=== PATIENT | female | born 1945 | race Caucasian/White ===

== ENCOUNTER 2025-01-15 06:11 | Inpatient (IN) | payer MEDICARE, OTHER, SELFPAY ==
[2025-01-05 11:23] LABS: INR 1.02; PT 13.7 Sec (11.4-14.6)
[2025-01-05 11:24] LABS: APTT 27.8 Sec (23.4-35.0)
[2025-01-05 11:39] LABS: Hematocrit 34.7 % (37.0-47.0); Hemoglobin 11.6 g/dL (12.0-16.0); Mean Corp Hgb Conc. 33.4 g/dL (33.0-37.0); Mean Corpuscular Hgb 30.9 pg (27.0-31.0); Mean Corpuscular Volume 92.3 fL (81.0-99.0); Mean Platelet Volume 9.3 fL (7.4-10.4); Platelet Count 220 10^3/uL (130-400); Red Blood Cell Count 3.76 10^6/uL (4.20-5.40); Red Cell Dist. Width 13.6 % (11.5-14.5); White Blood Cell Count 5.5 10^3/uL (4.8-10.8)
[2025-01-05 11:43] LABS: ALT (SGPT) 19 U/L (0-35); AST (SGOT) 28 U/L (14-36); Albumin 4.1 g/dl (3.5-5.0); Alkaline Phosphatase 72 U/L (38-126); Blood Urea Nitrogen 13 mg/dl (7-17); Calcium 9.2 mg/dl (8.4-10.2); Carbon Dioxide 25 mmol/L (22-30); Chloride 103 mmol/L (98-107); Glucose 84 mg/dl (70-99); Potassium 4.2 mmol/L (3.5-5.1); Sodium 137 mmol/L (135-145); Total Bilirubin 0.6 mg/dl (0.2-1.3); Total Protein 7.2 g/dl (6.3-8.2); eGFR > 60.00
[2025-01-05 12:25] LABS: Glycohemoglobin (HgbA1c) 5.6 % (4.0-5.6)
[2025-01-05 14:08] VITALS: BMI 25.7
[2025-01-15] VITALS (13 sets, daily range): BP systolic 93–132; BP diastolic 53–82; BMI 25.7
[2025-01-15] MEDS: TYLENOL 1000 MG PO (07:01)
[2025-01-15] MEDS: HEPARIN 5000 UNITS SC (07:01)
[2025-01-15] MEDS: NORMOSOL-R/PLASMALYTE-A 1000 IV ×2 (07:01→13:39)
--- NOTE | 2025-01-15 11:27 | W.IMMPOSTOP ---
Surgical Immed Post Op Note
-
Primary Surgeon: Gino Casey MD
Septic Technician: ANATOLY Garcia
Pre-op Diagnosis: Rectal prolapse
Post-op Diagnosis: Same
Procedure Performed: Robotic ventral mesh rectopexy
Anesthesia Type: GET
Specimen / Cultures: None
Estimated Blood Loss: 20cc
Complications: None
Operative Findings: Full-thickness rectal prolapse
Upsylon mesh repair
Normal flexible sigmoidoscopy at the completion
Patient's and daughter updated in the waiting room
[2025-01-15 11:53] LABS: Glucose - Point of Care 150 mg/dl (70-99)
[2025-01-15] MEDS: TYLENOL 650 MG PO ×2 (13:38→20:22)
[2025-01-15] MEDS: TORADOL 15 MG IV ×2 (13:38→20:21)
[2025-01-15] MEDS: FLAGYL 500 MG 100 IV (16:39)
[2025-01-15] MEDS: TYLENOL PO (17:16)
--- NOTE | 2025-01-15 17:54 | PTCARENOTE ---
Pt arrived in bed from PACU at aprox 1300 today. Pt AAOx3. Pain to surgical sites tolerable. Vitals stable. IVF infusing. Pt with 6 laps sites to abd area SWETHA and glued. Ice pack applied for comfort. Pacheco draining clear yellow. Will order a clear
liquid lunch. Admission and assessment completed. Instructed pt to ring for assistance
[2025-01-16] MEDS: TORADOL 15 MG IV ×2 (00:27→06:00)
[2025-01-16] MEDS: TYLENOL 650 MG PO ×2 (00:28→08:43)
[2025-01-16] MEDS: FLAGYL 500 MG 100 IV (00:28)
[2025-01-16] MEDS: NORMOSOL-R/PLASMALYTE-A 1000 IV (00:28)
[2025-01-16 03:11] VITALS: BP 123/71
[2025-01-16] MEDS: TYLENOL PO (05:05)
[2025-01-16 06:11] LABS: % Immature Granulocytes 0.2 % (0-0.5); % Lymphocytes 12.3 % (20.5-51.1); % Monocytes 8.8 % (1.7-9.3); % Neutrophils 78.7 % (42.2-75.2); Absolute Lymphocytes 0.8 10^3/uL (1.2-3.4); Absolute Monocytes 0.5 10^3/uL (0.1-0.6); Absolute Neutrophils 4.8 10^3/uL (1.4-6.5); Hematocrit 29.2 % (37.0-47.0); Mean Corp Hgb Conc. 34.2 g/dL (33.0-37.0); Mean Corpuscular Hgb 30.9 pg (27.0-31.0); Mean Corpuscular Volume 90.1 fL (81.0-99.0); Mean Platelet Volume 9.3 fL (7.4-10.4); Nucleated Red Blood Cells % 0 %; Platelet Count 178 10^3/uL (130-400); Red Blood Cell Count 3.24 10^6/uL (4.20-5.40); Red Cell Dist. Width 13.6 % (11.5-14.5); White Blood Cell Count 6.1 10^3/uL (4.8-10.8)
[2025-01-16 06:42] LABS: Blood Urea Nitrogen 7 mg/dl (7-17); Calcium 8.6 mg/dl (8.4-10.2); Carbon Dioxide 27 mmol/L (22-30); Chloride 107 mmol/L (98-107); Estimated Creatinine Clearance 65 ml/min; Glucose 104 mg/dl (70-99); Potassium 3.9 mmol/L (3.5-5.1); Sodium 139 mmol/L (135-145); eGFR > 60.00
[2025-01-16 07:09] VITALS: BMI 25.8
[2025-01-16 07:20] VITALS: BP 121/62
[2025-01-16] MEDS: NORVASC 5 MG PO (08:42)
[2025-01-16] MEDS: TOPROL XL 75 MG PO (08:42)
[2025-01-16] MEDS: CRESTOR 20 MG PO (08:43)
[2025-01-16] MEDS: LOW STRENGTH ASPIRIN 81 MG PO (08:43)
--- NOTE | 2025-01-16 09:22 | W.PN.CRS1 ---
Today's Communication / Plan
-
Dispo planning
Assessment/Plan
-
This is a 79-year-old female with a history of rectal prolapse now with POD #1 robotic ventral mesh rectopexy. Doing well, expected postoperative course.
Will DC home today.
Subjective Data
Procedure
Robotic ventral mesh rectopexy
Subjective Data
Date of Service: January 16, 2025
Interval Events:
No acute events overnight. Slept well. Pain Controlled. Denies Nausea/Vomiting, +bowel function. Tolerating diet.
Objective Data
-
Vital Signs
Temp Pulse Resp BP Pulse Ox
98.6 F 72 18 121/62 98
01/16/25 07:20 01/16/25 07:20 01/16/25 07:20 01/16/25 07:20 01/16/25 07:20
Intake & Output
01/15/25 01/16/25 01/17/25
06:59 06:59 06:59
Intake Total 1540 / 1540
Output Total 2300 / 2300 1280 / 1280
Balance -760 / -760 -1280 / -1280
Intake:
Oral fluids 440 / 440
IV fluids (Total) 900 / 900
Normosol 100 / 100
IV piggybacks 200 / 200
Output:
Urine, Pacheco 2300 / 2300 800 / 800
Urine, Voided 480 / 480
Lab Results
01/16/25 05:21
01/16/25 05:21
Physical Exam
-
General: No Acute Distress
Abdomen: Soft, Non Distended and Tender (Appropriate)
Incision: Clear, Dry, Intact
--- NOTE | 2025-01-16 09:34 | W.DS.TRANS ---
Addendum entered and electronically signed by KACY Ellis 01/16/25 11:01:
dictated #[id number]
Original Note:
DC Summary - Counterperson
-
Discharge Instructions:
Sleep Apnea Risk Low
Discharge Diagnosis/Procedures Robotic ventral mesh rectopexy
Diet Low Residue
Activity No strenuous activity
Additional Activity No lifting over 10lbs (gallon of milk)
Driving Restrictions No driving for 1 week
Bathing Restrictions OK to Shower
Wound Care Allow glue to naturally fall off. Do not pick at
incisions.
Instructions: Low-fiber diet
Stand-Alone Forms:
Changes to Home Medications: No
Discharge Medications:
DC Medications w/original date entered in [employer]
amlodipine 5 mg tablet 5 mg PO DAILY Blood Pressure 01/08/25
aspirin 81 mg tablet 81 mg PO DAILY Blood Clot Prevention/Tx 01/08/25
cholecalciferol (vitamin D3) 125 mcg (5,000 unit) tablet (Vitamin D3) 250 mcg PO DAILY Supplement 01/08/25
diphenhydramine HCl 25 mg capsule (Benadryl) 25 mg PO HS PRN congestion 01/08/25
ferrous sulfate 325 mg (65 mg iron) tablet (iron) 325 mg PO DAILY Supplement 01/08/25
lisinopril 30 mg tablet 30 mg PO DAILY Blood Pressure 01/08/25
metoprolol succinate 25 mg tablet,extended release 24 hr 75 mg PO DAILY Heart Disease/Condition 01/08/25
psyllium husk 3.4 gram/5.4 gram oral powder (Metamucil) 1 tsp PO BID PRN constipation 01/08/25
Held on 01/16/25. Instructions: Resume on 01/30/25.
rosuvastatin 20 mg tablet 20 mg PO DAILY High Cholesterol 01/08/25
vit C 250 mg-vit E 90 mg-zinc 40 mg-copper 1 [id number] capsule (PreserVision AREDS-2) 1 tab PO BID Eye Condition 01/08/25
oxycodone 5 mg tablet 5 mg PO Q4HPRN PRN breakthrough/severe pain #15 tabs 01/16/25
polyethylene glycol 3350 17 gram oral powder packet 17 grams PO DAILYPRN PRN constipation #1 packet 01/16/25
Home Medication Changes
Pending Results: No
[2025-01-16 11:15] VITALS: BP 129/62
--- NOTE | 2025-01-16 12:03 | CM ---
Initial assessment completed with patient who lives with her in a 1 story home plus basement with 3 steps to enter. [employer] patient was independent in ADL's and ambulation, drives. Has crutches in the home, no in-home services. Does have a
HC-POA. Support system is and daughter. PCP is Dr Yuridia Varma and Pharmacy is [facility] in [place]. Discharge POC: Home with no needs.
[2025-01-16] MEDS: TORADOL IV (12:16)
--- NOTE | 2025-01-16 13:23 | CM ---
Patient has been medically cleared for discharge to home with no additional skilled services. transporting home.
== END 2025-01-16 13:06 | disposition home or self-care (01) | DRG 331 ==
LOC: 2 SOUTH 06:11
PROVIDERS: ADMITTING PHYSICIAN Surgery; FAMILY PHYSICIAN Internal Medicine
PROC: 0DUP4JZ Supplement Rectum with Synthetic Substitute, Percutaneous Endoscopic Approach (ICD-10-PCS; 2025-01-15)
PROC: 0DSP4ZZ Reposition Rectum, Percutaneous Endoscopic Approach (ICD-10-PCS; 2025-01-15)
PROC: 8E0W4CZ Robotic Assisted Procedure of Trunk Region, Percutaneous Endoscopic Approach (ICD-10-PCS; 2025-01-15)
DX: K62.3 Rectal prolapse (principal); Z88.0 Allergy status to penicillin
CPT/HCPCS: 36415; 80048; 80053; 82962; 83036; 85025; 85027; 85610; 85730; 86850; 86900; 86901; 97161; C1763

== ENCOUNTER 2025-01-23 18:53 | Inpatient (IN) | payer MEDICARE, OTHER, SELFPAY ==
[2025-01-23] VITALS (7 sets, daily range): BP systolic 83–119; BP diastolic 51–77; BMI 25.3; BMI 24.8
[2025-01-23 14:53] LABS: Hematocrit 31.9 % (37.0-47.0); Hemoglobin 11.4 g/dL (12.0-16.0); Mean Corp Hgb Conc. 35.7 g/dL (33.0-37.0); Mean Corpuscular Volume 87.6 fL (81.0-99.0); Nucleated Red Blood Cells % 0 %; Platelet Count 264 10^3/uL (130-400); Red Cell Dist. Width 13.4 % (11.5-14.5)
--- NOTE | 2025-01-23 15:06 | ED.GENMED ---
History of Present Illness
General
Chief Complaint: Post Operative Problem(s)
Source: patient
Exam Limitations: none
Time Seen by Provider: 01/23/25 15:00
History of Present Illness
History of Present Illness:
See MDM
Past History
Past History
ED Past Medical History: HTN
ED Past Surgical History: Other (Rectal prolapse surgery)
Social History
Tobacco: Non-smoker
Alcohol: None
Phy Exam
Physical Exam
Physical Exam:
See MDM
Course
Orders/Labs/Results
Orders:
Orders
01/23/25 13:57
Electrocardiogram (*1) Urgent
Reason for Study: Abdominal Pain
EKG- Treatment ONCE
IV Insert/Care/Rem.- Treatment PRN
01/23/25 14:32
Complete Blood Count/With Diff Urgent
Comprehensive Metabolic Panel Urgent
Lactic Acid Urgent
Lipase Urgent
01/23/25 15:04
0.9% Sodium Chloride 1000 ml [Nss] 1,000 ml IV BOLUS
Morphine Sulfate 2 mg IV NOW STA
Ondansetron Injectable [Zofran] 4 mg IV NOW STA
01/23/25 15:25
CT Abd/pel (oral only)-DH Only Urgent
Comment:
Reason For Exam: general abd pain, recent rectal surgery
Iohexol [Omnipaque] See Protocol PO NOW STA
01/23/25 15:39
Urinalysis Reflex To Culture Urgent
Date Specimen was Collected: 01/23/25
Time Specimen was Collected: 13:57
01/23/25 17:48
Ondansetron Injectable [Zofran] 4 mg .ROUTE .STK-MED ONE
Ondansetron Injectable [Zofran] 4 mg IV NOW STA
01/23/25 17:53
NG Tube [GI tube insertion- Treatment] ONCE
Morphine Sulfate 4 mg IV NOW STA
01/23/25 17:56
Consult Surgery [SURGICAL CONSULT] Urgent
Consulting Provider: Mack Calix
Was physician already notified: Yes
01/23/25 18:08
CR Chest Portable - 1 View Urgent
Comment:
Reason For Exam: ngt placement
Reason Study Needs to be Portable: Unable to Transport
Abnormal Lab Results
01/23/25
14:32
RBC 3.64 L 10^6/uL
(4.20-5.40)
Hgb 11.4 L g/dL
(12.0-16.0)
Hct 31.9 L %
(37.0-47.0)
MCH 31.3 H pg
(27.0-31.0)
Absolute Lymphs (auto) 0.9 L 10^3/uL
(1.2-3.4)
Absolute Monos (auto) 0.8 H 10^3/uL
(0.1-0.6)
Lymphocytes % 12.0 L %
(20.5-51.1)
Monocytes % 11.6 H %
(1.7-9.3)
Sodium 126 L mmol/L
(135-145)
Chloride 79 L mmol/L
(98-107)
Carbon Dioxide 36 H mmol/L
(22-30)
BUN 61 H mg/dl
(7-17)
Creatinine 4.9 H* mg/dL
(0.6-1.0)
Glucose 137 H mg/dl
(70-99)
Calcium 8.2 L mg/dl
(8.4-10.2)
Lipase 383 H U/L
(23-300)
01/23/25 14:32
01/23/25 14:32
Vital Signs
Initial and Last Documented VS:
Initial Vital Signs
Temp Pulse Resp BP Pulse Ox
98.6 F 94 16 83/52 96
01/23/25 13:52 01/23/25 13:52 01/23/25 13:52 01/23/25 13:52 01/23/25 13:52
Last Documented Vital Signs
Temp Pulse Resp BP Pulse Ox
98.6 F 88 26 119/72 98
01/23/25 13:52 01/23/25 17:00 01/23/25 17:00 01/23/25 17:00 01/23/25 17:00
MDM/Problems Addressed
Differential Diagnosis Includes:
HPI and MDM Narrative:
79-year-old female presenting with generalized abdominal pain. This is associated with decreased p.o. intake. She had recent elective rectal prolapse surgery. Since then, she has had decreased p.o. intake and decreased urination. She is now
noticing abdominal distention and pain. She did take a dose of MiraLAX which did result in defecation.
On exam, she is mildly distended but abdomen is soft. She does not have peritonitic signs. Blood work shows creatinine of 4.9 but bedside bladder scan shows no evidence of bladder distention. Will start IV fluids and give pain medicine obtain CT.
Will let the colorectal team know
Physical exam
General: Mildly uncomfortable
HEENT: protecting airway. Dry mucous membranes
Neck: appears supple
CV: No evidence of cyanosis
Resp: No accessory muscle use. Lungs clear
Abd: Mildly distended. No rebound
Extremities: No deformities
Neuro: alert
Psych: Normal affect
Skin: Intact
Problems Addressed including Acute and Chronic Conditions affecting care:
1. Abdominal pain
Acuity: acute
Prognosis: stable
Details: given recent Rectal surgery, will obtain CT
2. Elevated creatinine
Acuity: acute
Prognosis: stable
Details: Likely in setting of prerenal KEHINDE. Will give IV fluids. Bedside bladder scan shows no evidence of bladder distention
Updates
CT consistent with small bowel obstruction secondary to incarcerated hernia to the right abdomen. Due to her abdominal distention, I cannot reduce the hernia. Case discussed with surgery. Will place NG tube and surgery will come to bedside to try
to reduce
Differential Diagnosis (but not limited to): Small bowel suction, ileus
Testing considered: Abdominal x-ray
Drug therapy (if applicable): OTC meds, please see d/c instruction regarding Rx drugs
Amount and/or Complexity of Data Reviewed
Clinical info obtained from: Patient
External data reviewed: N/A
Labs I independently reviewed (but not limited to): Elevated creatinine
Radiology: The CT scan was personally and independently reviewed. In addition, official CT report reviewed.
Pulse Ox: not hypoxic
EKG independently reviewed: Sinus rhythm, PACs, no STEMI
Peer Health Promoter: Sinus rhythm
Critical Care: N/A
Risk of Complication:
Social Determinants of health: Good social support
Discussed with other providers: surgeon, hospitalist
Escalation of Care includes Admit/Obs: Given the acute kidney injury, will ultimately admit for IV fluids. Given the small bowel obstruction secondary to incarcerated hernia, surgery will bring to the OR if they cannot reduce at bedside
Occasional wrong word or 'sound a like' substitutions may have occurred due to the inherent limitations of voice recognition software. Read the chart carefully and recognize, using context, where substitutions have occurred.
*Pulse Oximetry
SaO2: 97
Oxygen Mode of Delivery: Room air
Patient hypoxic: no
*Critical Care Note
Total Time (30-74mins, 75-104mins- exclusive of procedures): Not Applicable
ED Attending Note
-
Portions of this chart may have been created with voice recognition software.� Occasional wrong word or��sound alike� substitutions may have occurred due to the inherent limitations of voice recognition software.
Discharge Plan
Departure
Patient Disposition: Admit
Date of Disposition: 01/23/25
Time of Disposition: 18:01
Admit to: Med/Surg
Presentation/result/management discussed w/ accepting MD/DO: Hospitalist
Discharge Problem:
SBO (small bowel obstruction), Incarcerated hernia, KEHINDE (acute kidney injury)
Prescriptions:
No Action
amlodipine 5 mg Tablet
5 mg PO DAILY
ferrous sulfate [iron] 325 mg (65 mg iron) Tablet
325 mg PO DAILY
lisinopril 30 mg Tablet
30 mg PO DAILY
aspirin 81 mg Tablet
81 mg PO DAILY
metoprolol succinate 25 mg Tablet Extended Release 24 Hr
75 mg PO DAILY
rosuvastatin 20 mg Tablet
20 mg PO DAILY
cholecalciferol (vitamin D3) [Vitamin D3] 125 mcg (5,000 unit) Tablet
250 mcg PO DAILY
PreserVision AREDS-2 250-90-40-1 mg Capsule
1 tab PO BID
polyethylene glycol 3350 [polyethylene glycol 3350] 17 gram powder in packet
17 grams PO DAILYPRN PRN (Reason: constipation) Qty: 1 0RF
acetaminophen [Tylenol Extra Strength] 500 mg Tablet
1,000 mg PO Q6HPRN PRN (Reason: mild pain)
oxycodone 5 mg Tablet
5 mg PO Q6HPRN PRN (Reason: severe pains)
omeprazole 20 mg Tablet,Delayed Release (Dr/Ec)
20 mg PO DAILY
Referrals:
Yuridia Varma MD [Family Provider, Internal Medicine]
Interventions
Interventions:
*Risk Screen - Suicide Last Done: 01/23/25 13:52
*General Assessment Last Done: 01/23/25 14:13
*Neglect/Abuse Screening Last Done: 01/23/25 14:20
*ED- Fall Risk Assessment Last Done: 01/23/25 14:13
*ED COVID-19 Vaccine History Last Done: 01/23/25 14:13
Discharge Date and Time
Print Language: LEBANESE
[2025-01-23 15:12] LABS: ALT (SGPT) 16 U/L (0-35); AST (SGOT) 26 U/L (14-36); Albumin 4.0 g/dl (3.5-5.0); Alkaline Phosphatase 61 U/L (38-126); Blood Urea Nitrogen 61 mg/dl (7-17); Calcium 8.2 mg/dl (8.4-10.2); Carbon Dioxide 36 mmol/L (22-30); Chloride 79 mmol/L (98-107); Estimated Creatinine Clearance 8 ml/min; Glucose 137 mg/dl (70-99); Lipase 383 U/L (23-300); Potassium 3.7 mmol/L (3.5-5.1); Sodium 126 mmol/L (135-145); Total Protein 6.9 g/dl (6.3-8.2); eGFR 8.62
[2025-01-23] MEDS: NSS 1000 IV ×2 (15:14→20:14)
[2025-01-23] MEDS: ZOFRAN 4 MG IV ×2 (15:14→17:49)
[2025-01-23] MEDS: MORPHINE SULFATE 2 MG IV (15:15)
[2025-01-23] MEDS: OMNIPAQUE 50 ML PO (15:35)
--- NOTE | 2025-01-23 16:16 | CON.CRS ---
Documented by User: KACY Ellis 01/23/25 16:36
Consultation
-
Date/Time Consultation Performed: 01/23/25 1600
Reason for Consultation: n/v
Medical History
-
Chief Complaint: n/v
History of Present Illness:
Ms White is a 79 yo female with a h/o HTN and recent robotic ventral mesh rectopexy on Saturday01/15/[address] Csaey seen today in evaluation in the ED. She did well in the immediate post operative period and was discharged to home the following
day. On saturday night, she began having a lot of sneezing and noted a bulge to the right lower abdominal incisions with some discomfort to the right upper abdomen since that time. The following day, she noted some nausea with vomiting which has
intermittently persisted since that time with poor po intake. She was passing liquid stools and some flatus initially on going home which did slow down. Yesterday, she had a small BM with the help of miralax. She continues to pass flatus. She has
noted that she is urinating small amounts less frequently and that her urine has been quite dark. She denies fevers or chills. She was a little dizzy at home today and was brought to the ED by her family.
Past Medical History
Past Medical History: Cancer (skin) and Hypercholesterolemia
Past Surgical History: Gynecological (tubal ligation) and Other (robotic ventral mesh rectopexy 01/15/25)
Social History
Tobacco: Non-Smoker
Alcohol: None
Personal:
Living: With Family
Family History
Family History: Reviewed & Not Pertinent
Allergies / Home Medications
Allergy/AdvReac Type Severity Reaction Status Date / Time
Penicillins Allergy swollen Verified 01/15/25 06:41
joints
�Medication �Instructions �Recorded �Confirmed �Type
amlodipine 5 mg tablet 5 mg PO DAILY Blood Pressure 01/08/25 01/23/25 History
aspirin 81 mg tablet 81 mg PO DAILY Blood Clot 01/08/25 01/23/25 History
Prevention/Tx
cholecalciferol (vitamin D3) 125 250 mcg PO DAILY Supplement 01/08/25 01/23/25 History
mcg (5,000 unit) tablet (Vitamin
D3)
ferrous sulfate 325 mg (65 mg 325 mg PO DAILY Supplement 01/08/25 01/23/25 History
iron) tablet (iron)
lisinopril 30 mg tablet 30 mg PO DAILY Blood Pressure 01/08/25 01/23/25 History
metoprolol succinate 25 mg 75 mg PO DAILY Heart 01/08/25 01/23/25 History
tablet,extended release 24 hr Disease/Condition
rosuvastatin 20 mg tablet 20 mg PO DAILY High Cholesterol 01/08/25 01/23/25 History
vit C 250 mg-vit E 90 mg-zinc 40 1 tab PO BID Eye Condition 01/08/25 01/23/25 History
mg-copper 1 me-[id number]-ptohqu
capsule (PreserVision AREDS-2)
polyethylene glycol 3350 17 gram 17 grams PO DAILYPRN PRN 01/16/25 01/23/25 Rx
oral powder packet constipation #1 packet
acetaminophen 500 mg tablet 1,000 mg PO Q6HPRN PRN mild pain 01/23/25 01/23/25 History
(Tylenol Extra Strength)
omeprazole 20 mg tablet,delayed 20 mg PO DAILY 01/23/25 01/23/25 History
release
oxycodone 5 mg tablet 5 mg PO Q6HPRN PRN severe pains 01/23/25 01/23/25 History
Review of Systems
-
History Source: Patient and Family
All other systems: Negative unless noted
A 10 point review of systems was completed, and was negative except as per HPI.
Physical Exam
Vital Signs
Temp 98.6 F 01/23/25 13:52
Pulse 89 01/23/25 16:00
Resp Rate 19 01/23/25 16:00
Blood pressure 89/77 01/23/25 16:00
SaO2 97 01/23/25 15:45
01/22/25 01/23/25 01/24/25
06:59 06:59 06:59
Actual Weight 64.7 kg
Body Mass Index (BMI) 25.3
Lab Results / Allergies
01/23/25 14:32
01/23/25 14:32
WBC 7.2 10^3/uL (4.8-10.8) 01/23/25 14:32
Hgb 11.4 g/dL (12.0-16.0) L 01/23/25 14:32
Hct 31.9 % (37.0-47.0) L 01/23/25 14:32
Plt Count 264 10^3/uL (130-400) 01/23/25 14:32
Abs Immat Gran (auto) 0.0 10^3/uL (0-0.05) 01/23/25 14:32
Neutrophils % 74.9 % (42.2-75.2) 01/23/25 14:32
Allergy/AdvReac Type Severity Reaction Status Date / Time
Penicillins Allergy swollen Verified 01/15/25 06:41
joints
Physical Exam
General: Well Developed and Well Nourished
HEENT: Moist Mucous Membranes
Respiratory: Non Labored Respirations
GI: Soft, Tender (right abdomen), Distended (mild) and Other (Bulging across the right lower abdomen with some ecchymosis. Tenderness to the right upper abdomen)
Skin: Warm, Dry and Other (incisions healing well, no erythema. mild associated ecchymosis)
Neuro: Awake, Alert and AO x 3
Psych: Calm
Data Reviewed
-
Labs: Labs Reviewed by me, Discussed with Physician, Discussed with Patient and Discussed with Family
Old Records: Reviewed
Assessment / Plan
-
79 yo female seen today in the ED who is pod #8 robotic ventral mesh rectopexy with Dr Casey who was initially doing well after surgery. She developed sneezing on the evening of POD #2 with subsequent bulging to right lower abdomen followed by
nausea and vomiting with poor PO intake over the past 5-6 days but has been passing flatus and stools. Low UO over the past day or 2.
Labs notable for hyponatremia and KEHINDE with Cr of 4.9 (0.6). Hemoglobin stable from prior admission without leukocytosis. Afebrile. Hypotensive on arrival, BP responded to IVF bolus. Suspect prerenal KEHINDE from poor PO intake. CT abd/pelvis with PO
contrast pending to better evaluate abdominal bulging/pain and GI tract.
--Further surgical recs pending CT imaging
--Continue NPO pending CT findings
Would recommend admitting to hospitalist service for medical management of renal impairment

Documented by User: Mack Calix MD 01/23/25 21:04
Data Reviewed
-
CT Scan: Image Personally Visualized and interpreted and Discussed with Physician (radiology)
[2025-01-23] MEDS: MORPHINE SULFATE 4 MG IV (17:57)
--- NOTE | 2025-01-23 18:17 | HPS.HSE ---
Family Physician
-
Family Physician: Yuridia Varma MD
Chief Complaint
-
abdominal pain
History of Present Illness
79-year-old female past medical history of rectal prolapse status post ventral mesh rectopexy on 01/15, hypertension, skin cancer, hypercholesteremia, presenting to the emergency room for bulge in the right lower abdomen incision site. She recently
underwent robotic ventral mesh rectopexy on 01/[address] Casey. On Saturday night she began having a lot of sneezing and noticed a bulge with some discomfort in the right upper abdomen since that time. She had nausea next day with vomiting with poor
p.o. intake. She was passing liquid stools and some gas initially which did slow down. She had constipation afterwards and took MiraLAX with a small bowel movement. Continues to pass gas. She is urinating less frequently. Urine is dark. No
fevers or chills. Little bit of dizziness today.
Denies smoking or alcohol use.
Medical History
Past Medical History
Past Medical History: Reports Other (rectal prolapse status post ventral mesh rectopexy on 01/15, hypertension, skin cancer, hypercholesteremia)
Past Surgical History: Reports Other (Gynecological (tubal ligation) and Other (robotic ventral mesh rectopexy 01/15/25))
Social History
Tobacco: Non-smoker
Alcohol: None
Drug: None
Family History
Family History: Not pertinent
Allergies / Home Medications
Allergies reflects when Allergies were last updated in [facility].
Home Medications with original date entered in [facility]
Allergy/Medication List:
Allergies
Allergy/AdvReac Type Severity Reaction Status Date / Time
Penicillins Allergy swollen Verified 01/15/25 06:41
joints
Home Medications
amlodipine 5 mg tablet 5 mg PO DAILY Blood Pressure 01/08/25
aspirin 81 mg tablet 81 mg PO DAILY Blood Clot Prevention/Tx 01/08/25
cholecalciferol (vitamin D3) 125 mcg (5,000 unit) tablet (Vitamin D3) 250 mcg PO DAILY Supplement 01/08/25
ferrous sulfate 325 mg (65 mg iron) tablet (iron) 325 mg PO DAILY Supplement 01/08/25
lisinopril 30 mg tablet 30 mg PO DAILY Blood Pressure 01/08/25
metoprolol succinate 25 mg tablet,extended release 24 hr 75 mg PO DAILY Heart Disease/Condition 01/08/25
rosuvastatin 20 mg tablet 20 mg PO DAILY High Cholesterol 01/08/25
vit C 250 mg-vit E 90 mg-zinc 40 mg-copper 1 yt-hazjxg-dsloqf capsule (PreserVision AREDS-2) 1 tab PO BID Eye Condition 01/08/25
polyethylene glycol 3350 17 gram oral powder packet 17 grams PO DAILYPRN PRN constipation #1 packet 01/16/25
acetaminophen 500 mg tablet (Tylenol Extra Strength) 1,000 mg PO Q6HPRN PRN mild pain 01/23/25
omeprazole 20 mg tablet,delayed release 20 mg PO DAILY 01/23/25
oxycodone 5 mg tablet 5 mg PO Q6HPRN PRN severe pains 01/23/25
Review of Systems
-
History Source: Patient
A 12 point ROS was completed and negative except as noted: Yes
Constitutional: Reports No Symptoms
EENT: Reports No Symptoms
Respiratory: Reports No Symptoms
Cardiac: Reports No Symptoms
Abdomen/GI: Reports See HPI
: Reports No Symptoms
Musculoskeletal: Reports No Symptoms
Skin: Reports No Symptoms
Neurological: Reports No Symptoms
Endocrine: Reports No Symptoms
Hematologic/Lymphatic: Reports No Symptoms
Psych: Reports No Symptoms
Physical Exam
Vital Signs
Vital Signs
Temp Pulse Resp BP Pulse Ox
98.6 F 84 24 119/72 98
01/23/25 13:52 01/23/25 17:30 01/23/25 17:30 01/23/25 17:00 01/23/25 17:30
Physical Exam
General: Well Developed, Well Nourished and No Apparent Distress
HEENT: NormoCephalic, Moist mucous membranes and Atraumatic
Respiratory: Clear
Cardiac: S1/S2 and Regular Rhythm; No Murmur or Rub
GI: Soft, Normal Bowel Sounds, Tender (RLQ hernia ) and Distended; No Organomegaly
Rectal: Deferred by Provider
Musculoskeletal: No Clubbing, No Cyanosis and No Edema
Skin: No Rash
Neuro: Nonfocal/grossly intact
Laboratory Results
-
01/23/25 14:32
01/23/25 14:32
Laboratory Results
Lactic Acid 1.3 mmol/L (0.7-2.0) 01/23/25 14:32
Total Bilirubin 0.8 mg/dl (0.2-1.3) 01/23/25 14:32
AST 26 U/L (14-36) 01/23/25 14:32
ALT 16 U/L (0-35) 01/23/25 14:32
Alkaline Phosphatase 61 U/L (38-126) 01/23/25 14:32
Lipase 383 U/L (23-300) H 01/23/25 14:32
Data Reviewed
-
Lab Data: Labs Reviewed by me
Old Records: Reviewed
Impression/Plan
-
IMPRESSION:
PLAN:
# Incarcerated hernia with bowel obstruction
# Recent elective rectal prolapse s/p ventral mesh rectopexy on 01/15
- N.p.o. including all oral medication
-NG tube placed with significant output
- IV fluids
- Colorectal going to reduce and trying to avoid operative management given KEHINDE
- Dilaudid for pain
- Protonix daily
- Hold lisinopril, amlodipine, metoprolol due to hypotension
# Acute kidney injury likely prerenal from GI losses
- Creatinine 4.9
- Pacheco catheter
- Check I's and O's
- IV fluids
- Hold lisinopril
# Hyponatremia secondary to vomiting, decreased p.o. intake
- Sodium 126
- Monitor with IV fluids
Essential hypertension
- Hold lisinopril, amlodipine, metoprolol
Skin cancer
Hypercholesterolemia
- Hold statin
Chronic anemia
- Hemoglobin stable 11.4
DNR/DNI
DVT prophylaxis�heparin
N.p.o.
[2025-01-23 18:42] LABS: Urine Character Clear (Clear)
[2025-01-23 18:48] LABS: Urine Squamous Cell 0-2 /LPF (Few)
[2025-01-23] MEDS: HEPARIN 5000 UNITS SC (20:16)
[2025-01-24] VITALS (13 sets, daily range): BP systolic 101–123; BP diastolic 43–93
[2025-01-24 01:39] LABS: Blood Urea Nitrogen 65 mg/dl (7-17); Calcium 7.7 mg/dl (8.4-10.2); Carbon Dioxide 37 mmol/L (22-30); Chloride 83 mmol/L (98-107); Estimated Creatinine Clearance 10 ml/min; Glucose 94 mg/dl (70-99); Magnesium 1.8 mg/dl (1.6-2.3); Potassium 4.1 mmol/L (3.5-5.1); Sodium 128 mmol/L (135-145); eGFR 10.99
--- NOTE | 2025-01-24 02:03 | PTCARENOTE ---
Pt adm to unit from ED, surgery scheduled for AM @ this time. Pt remains NPO, NGT to low intermittent suction but only output continues to remain in tubing. Flushed and patent, pt denies any nausea or vomiting. Abdomen non distended, RLQ has small
area where pt reports hernia repair from previous week was located.
[2025-01-24 06:35] LABS: Hematocrit 30.1 % (37.0-47.0); Hemoglobin 10.5 g/dL (12.0-16.0); Mean Corp Hgb Conc. 34.9 g/dL (33.0-37.0); Mean Corpuscular Volume 89.1 fL (81.0-99.0); Nucleated Red Blood Cells % 0 %; Platelet Count 220 10^3/uL (130-400); Red Cell Dist. Width 13.5 % (11.5-14.5)
[2025-01-24 06:57] LABS: ALT (SGPT) 13 U/L (0-35); AST (SGOT) 25 U/L (14-36); Albumin 3.4 g/dl (3.5-5.0); Alkaline Phosphatase 55 U/L (38-126); Blood Urea Nitrogen 65 mg/dl (7-17); Calcium 7.9 mg/dl (8.4-10.2); Carbon Dioxide 37 mmol/L (22-30); Chloride 83 mmol/L (98-107); Estimated Creatinine Clearance 11 ml/min; Glucose 80 mg/dl (70-99); Potassium 3.6 mmol/L (3.5-5.1); Sodium 129 mmol/L (135-145); Total Protein 6.1 g/dl (6.3-8.2); eGFR 13.36
[2025-01-24] MEDS: PROTONIX IV 40 MG IV (08:58)
[2025-01-24] MEDS: NSS (PRESERVATIVE FREE) 10 ML IV (08:59)
[2025-01-24] MEDS: HEPARIN 5000 UNITS SC (09:04)
[2025-01-24] MEDS: NSS 1000 IV (09:05)
--- NOTE | 2025-01-24 10:13 | W.PN.HOSP.TC ---
Today's Communication/Plan
-
for surgical intervention now
continue IVF
monitor labs
Assessment / Plan
Assessment / Plan
# Incarcerated hernia with bowel obstruction
# Recent elective rectal prolapse s/p ventral mesh rectopexy on 01/15
- N.p.o. including all oral medication
-NG tube placed with significant output
- IV fluids
- Colorectal to take to surgery now
- Dilaudid for pain
- Protonix daily
- Hold lisinopril, amlodipine, metoprolol due to hypotension, though BP better now 83/52-->108/52
# Acute kidney injury likely prerenal from GI losses
Better
- Creatinine 4.9-->4.0-->3.4
- Pacheco catheter
- Check I's and O's
- IV fluids
- Hold lisinopril
# Hyponatremia secondary to vomiting, decreased p.o. intake
- Sodium 126-->128-->129
better
- Monitor with IV fluids
Essential hypertension
- Hold lisinopril, amlodipine, metoprolol
Skin cancer
Hypercholesterolemia
- Hold statin
Chronic anemia
- Hemoglobin stable 11.4-->10.5
DNR/DNI
DVT prophylaxis�heparin
N.p.o.
Anticipated Discharge: > 48 hours
Subjective/Interval History
-
Date of Service: January 24, 2025
Abd pain has eased compared to time of admission
Objective Data
-
Labs:
Laboratory Results
01/24/25 01/24/25
01:06 06:07
WBC 5.3
Hgb 10.5 L
Hct 30.1 L
Plt Count 220
Sodium 128 L 129 L
Potassium 4.1 3.6
Chloride 83 L 83 L
Carbon Dioxide 37 H 37 H
BUN 65 H 65 H
Creatinine 4.0 H 3.4 H
Glucose 94 80
Calcium 7.7 L 7.9 L
Total Bilirubin 0.8
AST 25
ALT 13
Alkaline Phosphatase 55
Vital Signs:
Vital Signs
Temp Pulse Resp BP Pulse Ox
98.4 F 80 16 108/52 96
01/24/25 07:10 01/24/25 07:10 01/24/25 07:10 01/24/25 07:10 01/24/25 07:10
I&O
01/23/25 01/24/25 01/25/25
06:59 06:59 06:59
Intake Total 960 / 960
Output Total 2700 / 2700 125 / 125
Balance -1740 / -1740 -125 / -125
Review of Systems
-
History Source: Patient and Coordinated Provider
Constitutional: Denies Fever
EENT: Reports No Symptoms Reported
Respiratory: Reports No Symptoms
Cardiac: Reports No Symptoms
Abdomen/GI: Reports Abdominal Pain
Genitourinary: Reports No Symptoms
Musculoskeletal: Reports No Symptoms
Neuro: Reports No Symptoms
Physical Exam
-
General: Well Developed, Well Nourished and No Apparent Distress
HEENT: Normocephalic, Atraumatic and Moist Mucous Membranes
Respiratory: Clear to Auscultation; Negative Wheezes, Rales or Rhonchi
Cardiac: Regular Rhythm and S1/S2
GI: Soft, Normal Bowel Sounds, Tender and Distended
Musculoskeletal: No Clubbing, No Cyanosis and No Edema
--- NOTE | 2025-01-24 11:14 | W.IMMPOSTOP ---
Surgical Immed Post Op Note
-
Primary Surgeon: Mack Calix MD
Assisting Surgeon: LAMAR De La Cruz
Pre-op Diagnosis: Incarcerated incisional hernia
Post-op Diagnosis: Incarcerated incisional hernia
Procedure Performed: Laparoscopic repair of incarcerated incisional hernia
Anesthesia Type: General
Specimen / Cultures: None
Estimated Blood Loss: 10 mL
Complications: None
Operative Findings: Abdominal access via Veress at the prior LUQ port; Optiview technique with 5 mm trocar through the left epigastric port; significantly distended bowel throughout the abdomen; loop of small bowel incarcerated into port site
hernia; gently reduced the small bowel with atraumatic grasper; open fascia by about 5 mm with the Voyant LigaSure; reduced the remainder of the small bowel; bowel was hemorrhagic but well-perfused; closed fascia with 0 Vicryl in a [id number]
fashion using a suture passer
--- NOTE | 2025-01-24 11:18 | OR.RPT ---
Operative Report
Operative Report
DATE OF OPERATION: 01/24/2025
SURGEON: Mack Calix MD
PREOPERATIVE DIAGNOSIS: Incarcerated incisional hernia
POSTOPERATIVE DIAGNOSIS: Incarcerated incisional hernia
OPERATION: Laparoscopic repair of incarcerated incisional hernia
ASSISTANTS:
1. Ivette Flores NP
ANESTHESIA: General
ESTIMATED BLOOD LOSS: 10 mL
FINDINGS:
1. Loop of small bowel, approximately 30 cm in length, incarcerated in port site hernia
2. Successfully reduced by opening up the fascia by 5 mm; reduced bowel appeared bowel well-perfused, 10 cm segment appeared somewhat hemorrhagic, but no bowel injury was noted
SPECIMENS: None
DRAINS: None
COMPLICATIONS: No immediate complications.
INDICATIONS: The patient is a 79-year-old female who underwent robotic ventral mesh rectopexy on 01/15/2025. She was discharged to the following day and did well postoperatively up until postoperative day 3, when she noted a bulging in the right
side of her abdomen. Initially, there was minimal pain and no nausea or vomiting. However, she subsequently developed vomiting which persisted for several days. She presented to the ED and a CT scan showed incarcerated small bowel at a port site
incision. She was severely dehydrated with an KEHINDE. She had no evidence of strangulation (i.e.�hemodynamic instability, skin changes, severe abdominal pain). Therefore, she was resuscitated for 12 hours and her KEHINDE and electrolytes were improving.
I recommended proceeding with surgery to repair the hernia. The operation was discussed with the patient in detail, including the risks, benefits and alternatives. Risks described included, but not limited to, bleeding, infection, damage to nearby
structures (i.e., bowel, bladder, epigastric vessels), hernia recurrence, possible bowel resection, conversion to open, possible mesh and complications associated with mesh if used (i.e.�mesh infection) and anesthetic risks, including but not
limited to, worsening renal function. The patient understood and agreed to proceed. The consent was signed and placed in the chart.
PROCEDURE IN DETAIL: The patient was taken to the operating room and placed on the operating table in supine position. Sequential compression devices were placed bilaterally. General anesthesia was induced and the patient was intubated without
complication. The patient was secured to the bed with 2 seatbelts, the right arm secured to the armboard and the left arm was tucked. Pacheco catheter was already in place. Nasogastric tube was already in place. Antibiotics were given pre-incision.
The abdomen was prepped and draped in the usual sterile fashion. A time-out was performed verifying the correct patient, procedure, operative site, positioning, and special equipment.
An 11 blade scalpel was used to open up the left upper quadrant port site closest to Miguel's point. A Veress needle was used to gain abdominal access. After 3 clicks, insufflation was connected and opening pressure was less than 8 mm. The
abdomen was insufflated to 12 mmHg. The patient tolerated insufflation well. The 11 blade scalpel was used to open up the left epigastric port site. Optiview technique was used with a 5�0 scope and a 5 mm trocar. This was advanced carefully and
abdominal entry was achieved. I switched to a 5�30 scope and the abdomen was explored. There were no injuries from initial entry or from the Veress needle. The Veress needle was removed. There was dilated small bowel throughout the abdomen.
There was a loop of small bowel incarcerated in the right lateral port, with dilated proximal bowel and collapsed distal bowel, consistent with a transition point.
A 5 mm trocar was advanced through the left upper quadrant port site under direct visualization. An atraumatic laparoscopic grasper was used to gently reduce the small bowel. About 20 cm of collapsed bowel was easily reduced without much
resistance. This area appeared well-perfused without any concern for injury. At this point, there began to be resistance with further reduction. I used the Voyant LigaSure to open up the fascia by about 5 mm, taking care to avoid injury to the
bowel. The remainder of the small bowel was then easily reduced. I gave the bowel a few minutes to reperfuse. In total, I estimate there was about 30 cm of small bowel incarcerated within the hernia. The 10 cm of small bowel that was a little
more difficult to reduce appeared hemorrhagic. I evaluated the length of reduced bowel after a few minutes and the entire length appeared well-perfused without any injuries. The 10 cm remained slightly hemorrhagic, but still well-perfused.
Therefore, no bowel resection was necessary.
Using an 11 blade scalpel, I opened up the right lateral port site that was involved in the hernia. I enlarged this incision to about 1.5 cm. I advanced my finger through the subcutaneous tissue into the fascial defect, which was also about 1.5 cm
in length. I used a suture passer and placed an 0 Vicryl stitch in a [id number] fashion to close the fascia. Prior to tying down the suture, I removed the 2 trocars under direct visualization. No bleeding was noted. I allowed the abdomen to
collapse and I tied down the fascial stitch. The skin of the three port sites that I used for this surgery were closed with 4-0 Monocryl in subcuticular fashion. The incisions were injected with a total of 30 mL of 0.25% Marcaine with epinephrine
and 0.3 mg of dexamethasone. Dermabond was used for dressing, which I also reapplied to the port sites that I did not use during this operation.
At this point, the procedure was complete. The patient was awoken and extubated without complication. All needle, sponge and instrument counts were reported as correct. The patient tolerated the procedure well and was transferred to the recovery
room in stable condition.
Of note, Ivette Flores, TASHI, journeyman operator assistant, was necessary during this procedure for traction, countertraction, and exploratory purposes. I was present for the entire duration of the case.
DICTATED BY: Mack Calix MD
[2025-01-24] MEDS: DILAUDID 0.5 MG IV ×2 (14:42→21:33)
[2025-01-24] MEDS: NSS IV (16:58)
[2025-01-24] MEDS: OFIRMEV 100 IV ×2 (16:58→21:38)
[2025-01-24] MEDS: ANESTHETIC LOZENGE 1 LOZENGE PO (19:57)
[2025-01-24] MEDS: ZOFRAN 4 MG IV (21:40)
[2025-01-25 03:15] VITALS: BP 126/78
[2025-01-25] MEDS: NSS 1000 IV ×3 (03:17→23:19)
[2025-01-25] MEDS: OFIRMEV 100 IV ×2 (04:04→11:35)
[2025-01-25 06:00] VITALS: BMI 25.3
[2025-01-25 07:07] LABS: Hematocrit 28.4 % (37.0-47.0); Hemoglobin 9.8 g/dL (12.0-16.0); Mean Corp Hgb Conc. 34.5 g/dL (33.0-37.0); Mean Corpuscular Volume 90.2 fL (81.0-99.0); Nucleated Red Blood Cells % 0 %; Platelet Count 218 10^3/uL (130-400); Red Cell Dist. Width 13.2 % (11.5-14.5)
[2025-01-25 07:25] VITALS: BP 126/58
[2025-01-25 07:41] LABS: Blood Urea Nitrogen 47 mg/dl (7-17); Calcium 8.0 mg/dl (8.4-10.2); Carbon Dioxide 33 mmol/L (22-30); Chloride 91 mmol/L (98-107); Estimated Creatinine Clearance 24 ml/min; Glucose 81 mg/dl (70-99); Potassium 3.9 mmol/L (3.5-5.1); Sodium 132 mmol/L (135-145); eGFR 33.01
[2025-01-25] MEDS: PROTONIX IV 40 MG IV (08:01)
[2025-01-25] MEDS: NSS (PRESERVATIVE FREE) 10 ML IV (08:01)
--- NOTE | 2025-01-25 08:07 | W.PN.CRS1 ---
Today's Communication / Plan
-
ngt clamping trial
d/c orourke
lovenox
Assessment/Plan
-
POD#1 Laparoscopic repair of incarcerated incisional hernia
WBC: 4.8, HGB 9.8
Vitals normal
-NGT clamping trial today.
-OOB as tolerated
-Lovenox for DVT prophylaxis, TEDS/SCDS in place
-D/C orourke
-Pain control: Dilaudid IV PRN
-Continue IVFs while NPO
Subjective Data
Procedure
01/24/2025- Laparoscopic repair of incarcerated incisional hernia
Subjective Data
Date of Service: January 25, 2025
Patient states she has some mild pain. She had nausea that resolved. Has flatus. Denies vomiting. Denies bloating.
Objective Data
-
Vital Signs
Temp Pulse Resp BP Pulse Ox
98.1 F 95 16 126/58 97
01/25/25 07:25 01/25/25 07:25 01/25/25 07:25 01/25/25 07:25 01/25/25 07:25
Intake & Output
01/24/25 01/25/25 01/26/25
06:59 06:59 06:59
Intake Total 960 / 960 1500 / 1500
Output Total 2700 / 2700 1914
Balance -1740 / -1740 -415 / -415
Intake:
IV fluids (Total) 900 / 900 1150 / 1150
normosol 150 / 150
IV piggybacks 200 / 200
Amount instilled into GI Tube ( 60 / 60 150 / 150
Total)
[place] Sump 60 / 60 150 / 150
Output:
Gastrointestinal tube output ( 2350 / 2350 495 / 495
Total)
[place] Sump 500 / 500 495 / 495
Urine, [place] 350 / 350 1420 / 1420
Lab Results
01/25/25 06:27
01/25/25 06:27
Physical Exam
-
General: No Acute Distress and AOx3
Abdomen: Soft, Non Distended and Tender (mild around incision)
Skin: Warm and Dry
Incision: Clear, Dry, Intact
--- NOTE | 2025-01-25 09:10 | CM ---
Patient seen at bedside on . Patient stated that she is living with her in a 1 story home in [place]. Patient requested professor of business and CM spoke with [place] for support. 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
able. Patient has a shower chair. Patient PCP is Dr. Varma and she uses the [facility] in [place]. Patient plan is for home with no needs but would be open to VN if recommended. CM will continue to follow for discharge planning needs.
Plan; home with VN vs home with no needs.
--- NOTE | 2025-01-25 12:37 | W.PN.HOSP.TC ---
Addendum entered and electronically signed by Geovani Ferro MD 01/26/25 10:21:
General: Well Developed, Well Nourished and No Apparent Distress
HEENT: Normocephalic, Atraumatic and Moist Mucous Membranes,+NGT
Respiratory: Clear to Auscultation; Negative Wheezes, Rales or Rhonchi
Cardiac: Regular Rhythm and S1/S2
GI: Soft, Normal Bowel Sounds
: + orourke
Musculoskeletal: No Clubbing, No Cyanosis and No Edema
Original Note:
Today's Communication/Plan
-
Monitor vitals
See plan
Continue to monitor renal function
DC [place]ke if okay with colorectal
NG tube clamping trial per colorectal
PT
Assessment / Plan
Assessment / Plan
# Incarcerated hernia with bowel obstruction
# Recent elective rectal prolapse s/p ventral mesh rectopexy on 01/15
- N.p.o. including all oral medication
-NG tube placed with significant output, clamp trial today
- IV fluids
- Colorectal surgery following, status post Laparoscopic repair of incarcerated incisional hernia
Pain control
- Protonix daily
- Hold lisinopril, amlodipine, metoprolol due to hypotension
# Acute kidney injury likely prerenal from GI losses
Better
- Creatinine 4.9 on admission, now 1.6
- DC [place] catheter if okay with colorectal
- Check I's and O's
- IV fluids
- Hold lisinopril
# Hyponatremia secondary to vomiting, decreased p.o. intake
- Monitor
Essential hypertension
- Hold lisinopril, amlodipine, metoprolol
Skin cancer
Hypercholesterolemia
- Hold statin
Chronic anemia
- Monitor hemoglobin
DNR/DNI
DVT prophylaxis�heparin
Anticipated Discharge: > 48 hours
Subjective/Interval History
-
Date of Service: January 25, 2025
Denies nausea
Objective Data
-
Labs:
Laboratory Results
01/25/25
06:27
WBC 4.8
Hgb 9.8 L
Hct 28.4 L
Plt Count 218
Sodium 132 L
Potassium 3.9
Chloride 91 L
Carbon Dioxide 33 H
BUN 47 H
Creatinine 1.6 H
Glucose 81
Calcium 8.0 L
Vital Signs:
Vital Signs
Temp Pulse Resp BP Pulse Ox
98.1 F 95 16 126/58 97
01/25/25 07:25 01/25/25 07:25 01/25/25 07:25 01/25/25 07:25 01/25/25 07:25
I&O
01/24/25 01/25/25 01/26/25
06:59 06:59 06:59
Intake Total 960 / 960 1500 / 1500 230 / 230
Output Total 2700 / 2700 1914
Balance -1740 / -1740 -415 / -415 230 / 230
[2025-01-25] MEDS: DILAUDID 0.5 MG IV ×2 (13:31→22:08)
[2025-01-25 16:00] VITALS: BP 124/59
[2025-01-25] MEDS: LOVENOX 30 MG SC (17:17)
[2025-01-25 23:10] VITALS: BP 121/62
[2025-01-26 06:00] VITALS: BMI 25.3
[2025-01-26 06:09] LABS: Hematocrit 27.2 % (37.0-47.0); Hemoglobin 9.4 g/dL (12.0-16.0); Mean Corp Hgb Conc. 34.6 g/dL (33.0-37.0); Mean Corpuscular Volume 91.6 fL (81.0-99.0); Nucleated Red Blood Cells % 0 %; Platelet Count 211 10^3/uL (130-400); Red Cell Dist. Width 13.4 % (11.5-14.5)
[2025-01-26 06:35] LABS: Blood Urea Nitrogen 29 mg/dl (7-17); Calcium 8.1 mg/dl (8.4-10.2); Carbon Dioxide 31 mmol/L (22-30); Chloride 103 mmol/L (98-107); Estimated Creatinine Clearance 49 ml/min; Glucose 57 mg/dl (70-99); Potassium 3.6 mmol/L (3.5-5.1); Sodium 137 mmol/L (135-145); eGFR > 60.00
[2025-01-26 07:18] VITALS: BP 128/70
[2025-01-26] MEDS: PROTONIX IV 40 MG IV (08:35)
[2025-01-26] MEDS: NSS (PRESERVATIVE FREE) 10 ML IV (08:35)
[2025-01-26 10:02] VITALS: BMI 25.3
--- NOTE | 2025-01-26 10:16 | W.PN.HOSP.TC ---
Today's Communication/Plan
-
monitor vitals
see plan
diet per CRS
if continues to improve then possible dc later today or tomorrow
Assessment / Plan
Assessment / Plan
# Incarcerated hernia with bowel obstruction
# Recent elective rectal prolapse s/p ventral mesh rectopexy on 01/15
- NGT out; started on regular diet; monitor response
still no BM but passing flatus
dc further IVF
- Colorectal surgery following, status post Laparoscopic repair of incarcerated incisional hernia
Pain control
- Protonix daily
- Hold lisinopril, amlodipine, metoprolol due to hypotension
# Acute kidney injury likely prerenal from GI losses
Better
- Creatinine 4.9 on admission, now 0.8; resolved
- DC Pacheco catheter if okay with colorectal
- Check I's and O's
-DC IV fluids
- Hold lisinopril
# Hyponatremia secondary to vomiting, decreased p.o. intake
- Monitor
Essential hypertension
- Hold lisinopril, amlodipine, metoprolol
restart as able
Suspect anemia of chronic disease
also chronic iron def anemia
on PO iron at home
Skin cancer
Hypercholesterolemia
- Hold statin
Chronic anemia
- Monitor hemoglobin
DNR/DNI
DVT prophylaxis�heparin
General: Well Developed, Well Nourished and No Apparent Distress
HEENT: Normocephalic, Atraumatic and Moist Mucous Membranes
Respiratory: Clear to Auscultation; Negative Wheezes, Rales or Rhonchi
Cardiac: Regular Rhythm and S1/S2
GI: Soft, Normal Bowel Sounds, Tender and Distended
Musculoskeletal: No Clubbing, No Cyanosis and No Edema
Anticipated Discharge: Within 24 hours
Subjective/Interval History
-
Date of Service: January 26, 2025
denies nausea
Objective Data
-
Labs:
Laboratory Results
01/26/25
05:50
WBC 5.1
Hgb 9.4 L
Hct 27.2 L
Plt Count 211
Sodium 137
Potassium 3.6
Chloride 103
Carbon Dioxide 31 H
BUN 29 H
Creatinine 0.8
Glucose 57 L
Calcium 8.1 L
Vital Signs:
Vital Signs
Temp Pulse Resp BP Pulse Ox
98.1 F 93 16 128/70 98
01/26/25 07:18 01/26/25 07:18 01/26/25 07:18 01/26/25 07:18 01/26/25 07:18
I&O
01/25/25 01/26/25 01/27/25
06:59 06:59 06:59
Intake Total 1500 / 1500 1030 / 1030
Output Total 1914 / 1914 600 / 600
Balance -415 / -415 430 / 430
--- NOTE | 2025-01-26 10:26 | CM ---
Addendum entered by Ghazala Lora RN 01/26/25 10:57:
IMM given.
Original Note:
Cm reviewed medical records. Plan for possible discharge today if patient tolerates diet. CM will remain available as needed.
PLAN: home with family support.
[2025-01-26] MEDS: NSS IV (10:58)
--- NOTE | 2025-01-26 11:31 | W.PN.CRS1 ---
Today's Communication / Plan
-
Regular diet
Possible DC later today if tolerating a diet
Assessment/Plan
-
POD#2 Laparoscopic repair of incarcerated incisional hernia
WBC: 5.1, hemoglobin 9.4
Vitals normal
- Advance to a regular diet
-OOB as tolerated
-Lovenox for DVT prophylaxis, TEDS/SCDS in place
- Voiding post Pacheco removal
-Pain control: Dilaudid IV PRN
- Discontinue IV fluids when tolerating a diet
- Okay for discharge later today if tolerating a diet. Follow-up with Dr. Casey in the office as scheduled.
Subjective Data
Procedure
01/24/2025- Laparoscopic repair of incarcerated incisional hernia
Subjective Data
Date of Service: January 26, 2025
Patient states she feels great. She has no complaints. She is a little sore but otherwise has no real pain. Denies nausea or vomiting. She is very hungry.
Objective Data
-
Vital Signs
Temp Pulse Resp BP Pulse Ox
98.1 F 93 16 128/70 98
01/26/25 07:18 01/26/25 07:18 01/26/25 07:18 01/26/25 07:18 01/26/25 07:18
Intake & Output
01/25/25 01/26/25 01/27/25
06:59 06:59 06:59
Intake Total 1500 / 1500 1030 / 1030
Output Total 1914 / 1914 600 / 600
Balance -415 / -415 430 / 430
Intake:
Oral fluids 0 / 0
IV fluids (Total) 1150 / 1150 1000 / 1000
normosol 150 / 150
IV piggybacks 200 / 200
Amount instilled into GI Tube ( 150 / 150 30 / 30
Total)
[place] Sump 150 / 150 30 / 30
Output:
Gastrointestinal tube output ( 495 / 495
Total)
[place] Sump 495 / 495
Urine, [place] 1420 / 1420 300 / 300
Urine, Voided 300 / 300
Lab Results
01/26/25 05:50
01/26/25 05:50
Physical Exam
-
General: No Acute Distress and AOx3
Abdomen: Soft, Non Distended and Tender
Skin: Warm and Dry
Incision: Clear, Dry, Intact
--- NOTE | 2025-01-26 14:00 | CHAP ---
Msgr. Pedro Moscoso of [facility] in [place] gave Sherin the Sacrament of the Sick. Exact time uncertain.
[2025-01-26 15:15] VITALS: BP 131/76
[2025-01-26] MEDS: LOVENOX 30 MG SC (17:22)
[2025-01-26] MEDS: DILAUDID 0.5 MG IV (22:16)
[2025-01-26 23:10] VITALS: BP 147/86
[2025-01-27 06:07] LABS: Hematocrit 29.2 % (37.0-47.0); Hemoglobin 9.8 g/dL (12.0-16.0); Mean Corp Hgb Conc. 33.6 g/dL (33.0-37.0); Mean Corpuscular Volume 90.7 fL (81.0-99.0); Nucleated Red Blood Cells % 0 %; Platelet Count 216 10^3/uL (130-400); Red Cell Dist. Width 13.5 % (11.5-14.5)
[2025-01-27 06:27] LABS: Blood Urea Nitrogen 17 mg/dl (7-17); Calcium 8.8 mg/dl (8.4-10.2); Carbon Dioxide 28 mmol/L (22-30); Chloride 106 mmol/L (98-107); Estimated Creatinine Clearance 56 ml/min; Glucose 101 mg/dl (70-99); Potassium 4.1 mmol/L (3.5-5.1); Sodium 136 mmol/L (135-145); eGFR > 60.00
[2025-01-27 07:15] VITALS: BP 130/78
--- NOTE | 2025-01-27 09:42 | W.PN.CRS1 ---
Today's Communication / Plan
-
Okay for discharge today
Assessment/Plan
-
POD#3 Laparoscopic repair of incarcerated incisional hernia
WBC: 5.1, hemoglobin 9.9
Vitals normal
- Continue regular diet
-OOB as tolerated
-Lovenox for DVT prophylaxis, TEDS/SCDS in place
- Voiding post Pacheco removal
-Pain control: Dilaudid IV PRN
- Okay for discharge. Follow-up with Dr. Casey in the office as scheduled.
Subjective Data
Procedure
01/24/2025- Laparoscopic repair of incarcerated incisional hernia
Subjective Data
Date of Service: January 27, 2025
Patient states she feels well today. Her pain is controlled. She is tolerating a diet. She is having flatus. She has no complaints and she is ready to go home.
Objective Data
-
Vital Signs
Temp Pulse Resp BP Pulse Ox
98.1 F 88 16 130/78 98
01/27/25 07:15 01/27/25 07:15 01/27/25 07:15 01/27/25 07:15 01/27/25 07:15
Intake & Output
01/26/25 01/27/25 01/28/25
06:59 06:59 06:59
Intake Total 1030 / 1030 2275 / 2275
Output Total 600 / 600
Balance 430 / 430 2275 / 2275
Intake:
Oral fluids 0 / 0 2275 / 2275
IV fluids (Total) 1000 / 1000
Amount instilled into GI Tube ( 30
Total)
[place] Sump 30 / 30
Output:
Urine, [place] 300 / 300
Urine, Voided 300 / 300
Other:
Number of approximated MODERATE 1
amounts of urine
Lab Results
07/02/25 05:44
01/27/25 05:44
Physical Exam
-
General: No Acute Distress and AOx3
Abdomen: Soft, Non Distended and Non Tender
Incision: Clear, Dry, Intact
--- NOTE | 2025-01-27 10:19 | W.PN.HOSP.TC ---
Today's Communication/Plan
-
monitor vitals
see plan
restart metoprolol
dc today
CRS follow up outpatient
time of discharge 37 minutes
Assessment / Plan
Assessment / Plan
# Incarcerated hernia with bowel obstruction
# Recent elective rectal prolapse s/p ventral mesh rectopexy on 01/15
- NGT out; started on regular diet; monitor response
still no BM but passing flatus
dc further IVF
- Colorectal surgery following, status post Laparoscopic repair of incarcerated incisional hernia
Pain control
- Protonix daily
- Hold lisinopril, amlodipine for now
restart metoprolol
# Acute kidney injury likely prerenal from GI losses
Better
- Creatinine 4.9 on admission, now 0.7; resolved
- DC Pacheco catheter if okay with colorectal
- Check I's and O's
-DC IV fluids
- Hold lisinopril
# Hyponatremia secondary to vomiting, decreased p.o. intake
- Monitor
Essential hypertension
- Hold lisinopril, amlodipine, restart metoprolol
restart as able
Suspect anemia of chronic disease
also chronic iron def anemia
on PO iron at home
Skin cancer
Hypercholesterolemia
- Hold statin
Chronic anemia
- Monitor hemoglobin
DNR/DNI
DVT prophylaxis�heparin
General: Well Developed, Well Nourished and No Apparent Distress
HEENT: Normocephalic, Atraumatic and Moist Mucous Membranes
Respiratory: Clear to Auscultation; Negative Wheezes, Rales or Rhonchi
Cardiac: Regular Rhythm and S1/S2
GI: Soft, Normal Bowel Sounds, Tender and Distended
Musculoskeletal: No Clubbing, No Cyanosis and No Edema
Anticipated Discharge: Today
Subjective/Interval History
-
Date of Service: January 27, 2025
denies pain
Objective Data
-
Labs:
Laboratory Results
01/27/25
05:44
WBC 5.1
Hgb 9.8 L
Hct 29.2 L
Plt Count 216
Sodium 136
Potassium 4.1
Chloride 106
Carbon Dioxide 28
BUN 17
Creatinine 0.7
Glucose 101 H
Calcium 8.8
Vital Signs:
Vital Signs
Temp Pulse Resp BP Pulse Ox
98.1 F 88 16 130/78 98
01/27/25 07:15 01/27/25 07:15 01/27/25 07:15 01/27/25 07:15 01/27/25 07:15
I&O
01/26/25 01/27/25 01/28/25
06:59 06:59 06:59
Intake Total 1030 / 1030 2275 / 2275
Output Total 600 / 600
Balance 430 / 430 2275 / 2275
--- NOTE | 2025-01-27 10:21 | W.DCSUMMARY ---
Discharge Summary
Discharge Data
Date of Admission: 01/23/25
Date of Discharge: 01/27/25
-
Pending Results: No
Hospital Course
79-year-old female with past medical history of hyperlipidemia, anemia, disease, hypertension, recent elective rectal prolapse status post ventral mesh rectopexy came to the hospital with incarcerated hernia with bowel obstruction. Patient was seen
by colorectal surgery and went to the OR for laparoscopic repair of incarcerated incisional hernia. Patient tolerated procedure well. Postop patient continued to do well and was able to tolerate regular diet prior to discharge. She also had acute
kidney injury on this hospitalization which over time continue to improve with fluids. Her creatinine normalized prior to discharge. Her blood pressure pressure was on the lower end so her lisinopril and amlodipine was held on discharge. She was
instructed to keep checking her blood pressure at home and to restart these meds once her blood pressure is greater than 140/90. Once her symptoms continue to improve and she was able to tolerate diet, she was then discharged home with instructions
to follow-up closely with all her physicians outpatient.
Discharge Plan
-
Patient Disposition: Home (Routine Discharge)
Discharge Diagnosis/Procedures: Laparoscopic repair of incarcerated incisional hernia
Acute kidney injury
Hyponatremia
Diet: Regular
Activity: No strenuous activity
Additional Activity: No lifting over 10lbs (gallon of milk)
Driving Restrictions: No driving for 1 week
Bathing Restrictions: OK to Shower
Blood Work: CBC next week with primary care provider
Wound Care: Allow glue to naturally fall off. Do not pick at incisions.
Referrals:
Ishmael Casey MD [Active, ColoRectal] - in two weeks
Yuridia Varma MD [Family Provider, Internal Medicine] - in less than 1 week
Prescriptions:
Continued
ferrous sulfate [iron] 325 mg (65 mg iron) Tablet
325 mg PO DAILY
aspirin 81 mg Tablet
81 mg PO DAILY
metoprolol succinate 25 mg Tablet Extended Release 24 Hr
75 mg PO DAILY
rosuvastatin 20 mg Tablet
20 mg PO DAILY
cholecalciferol (vitamin D3) [Vitamin D3] 125 mcg (5,000 unit) Tablet
250 mcg PO DAILY
PreserVision AREDS-2 250-90-40-1 mg Capsule
1 tab PO BID
polyethylene glycol 3350 17 gram powder in packet
17 grams PO DAILYPRN PRN (Reason: constipation) Qty: 1 0RF
acetaminophen [Tylenol Extra Strength] 500 mg Tablet
1,000 mg PO Q6HPRN PRN (Reason: mild pain)
oxycodone 5 mg Tablet
5 mg PO Q6HPRN PRN (Reason: severe pains)
omeprazole 20 mg Tablet,Delayed Release (Dr/Ec)
20 mg PO DAILY
Held
amlodipine 5 mg Tablet
5 mg PO DAILY
Hold Instructions: restart when SBP>140
lisinopril 30 mg Tablet
30 mg PO DAILY
Hold Instructions: restart when SBP>140
Discharge Orders:
Discharge Patient (As Directed); Ordered 01/27/25
Ordered By: Geovani Ferro
Discharge Date and Time
Discharge Date/Time: 01/27/25 11:16
Print Language: SAMI
[2025-01-27] MEDS: ASPIR LOW (ENTERIC COATED) 81 MG PO (10:23)
[2025-01-27 10:24] VITALS: BP 141/83; PULSE 102; O2SAT 97
[2025-01-27] MEDS: NSS (PRESERVATIVE FREE) 10 ML IV (10:24)
[2025-01-27] MEDS: PROTONIX IV 40 MG IV (10:24)
[2025-01-27] MEDS: CRESTOR 20 MG PO (10:24)
[2025-01-27] MEDS: TOPROL XL 75 MG PO (10:27)
--- NOTE | 2025-01-27 10:32 | PTOTSP ---
PATIENT NOTED TO BE SHORT OF BREATH/TACHYCARDIC HOWEVER PATIENT STATES THIS IS HER BASELINE. PATIENT WITHOUT CONCERNS REGARDING DISCHARGE TO HOME TODAY. SPOKE WITH DR. FAIR REGARDING PATIENT. PATIENT WILL BE DISCHARGED FROM THERAPY SERVICES AT THIS
TIME.
[2025-01-27 10:46] VITALS: BP 147/84
--- NOTE | 2025-01-27 11:01 | CM ---
CM reviewed medical records. Patient is medically ready for discharge.
PLAN: home with family support.
== END 2025-01-27 11:16 | disposition home or self-care (01) | DRG 354 ==
LOC: 2 SOUTH 18:53
PROVIDERS: Internal Medicine; Radiology Diagnostic Radiology; ADMITTING PHYSICIAN Hospitalist; ATTENDING PHYSICIAN Internal Medicine; CONSULT PHYSICIAN Surgery; EMERGENCY PHYSICIAN Student in an Organized Health Care Education/Training Program; FAMILY PHYSICIAN Internal Medicine
PROC: 0D9670Z Drainage of Stomach with Drainage Device, Via Natural or Artificial Opening (ICD-10-PCS; 2025-01-23)
PROC: 0WQF4ZZ Repair Abdominal Wall, Percutaneous Endoscopic Approach (ICD-10-PCS; 2025-01-24)
DX: K43.0 Incisional hernia with obstruction, without gangrene (principal); E87.1 Hypo-osmolality and hyponatremia; N17.9 Acute kidney failure, unspecified; I10 Essential (primary) hypertension; I95.9 Hypotension, unspecified; E86.0 Dehydration; D63.8 Anemia in other chronic diseases classified elsewhere; D50.9 Iron deficiency anemia, unspecified; E78.00 Pure hypercholesterolemia, unspecified; D64.9 Anemia, unspecified; Z66 Do not resuscitate; Z79.82 Long term (current) use of aspirin; Z88.0 Allergy status to penicillin; Z85.820 Personal history of malignant melanoma of skin
CPT/HCPCS: 43752; 71045; 74176; 80048; 80053; 81003; 81015; 83605; 83690; 83735; 85025; 87086; 93005; 96361; 96374; 96375; 96376; 97116; 97162; 99285; C1776